=== PATIENT | male | born 1965 | race Caucasian/White ===

== ENCOUNTER 2018-07-28 07:02 | Emergency (ER) | payer SELFPAY ==
[~2018-07-28] VITALS: Ht 180.3 cm; Wt 94.8 kg
[2018-07-28 07:02] VITALS: BP_SYST 161
[2018-07-28 08:50] VITALS: BP_SYST 161
== END 2018-07-28 08:50 | disposition left against medical advice (07) ==
LOC: SED 07:02
DX: S30.1XXA Contusion of abdominal wall, initial encounter (principal); S80.812A Abrasion, left lower leg, initial encounter; X58.XXXA Exposure to other specified factors, initial encounter; Y93.89 Activity, other specified; Y92.89 Other specified places as the place of occurrence of the external cause; Y99.8 Other external cause status
CPT/HCPCS: 99281